=== PATIENT | female | born 1950 | race American Indian/Alaskan Native ===

== ENCOUNTER 2017-11-23 07:48 | Day surgery (SDC) | payer MEDICARE, OTHER ==
[2017-11-20 12:59] LABS: BASOPHILS % (AUTO) 0.5 % (0-1); EOSINOPHILS # (AUTO) 0.1 X10'3 (0-0.9); EOSINOPHILS % (AUTO) 2.4 % (0-6); LYMPHOCYTES # (AUTO) 1.5 X10'3 (1.1-4.8); LYMPHOCYTES % (AUTO) 30.3 % (21-51); MEAN CORPUSCULAR HEMOGLOBIN 30.5 PG (27.0-31.0); MEAN CORPUSCULAR HGB CONC 34.2 % (33.0-36.5); MEAN CORPUSCULAR VOLUME 89.4 FL (78-98); MEAN PLATELET VOLUME 8.3 FL (7.4-10.4); MONOCYTES # (AUTO) 0.5 X10'3 (0-0.9); MONOCYTES % (AUTO) 9.6 % (2-12); NEUTROPHILS # (AUTO) 2.8 X10'3 (1.8-7.7); NEUTROPHILS % (AUTO) 57.2 % (42-75); PRE OP HEMATOCRIT 41.3 % (35.0-45.0); PRE OP HEMOGLOBIN 14.1 g/dL (12.0-16.0); PRE OP PLATELET COUNT 236 X10'3 (140-440); RED BLOOD COUNT 4.62 X10'6 (4.20-5.60); RED CELL DISTRIBUTION WIDTH 13.7 % (11.5-14.5)
[2017-11-20 13:01] LABS: COLOR,URINE Yellow (Yellow); GLUCOSE, URINE Negative (Neg); KETONES,URINE Negative (Neg); LEUKOCYTE ESTERASE ,URINE Trace (Neg); NITRITES, URINE Negative (Neg); OCCULT BLOOD,URINE Negative (Neg); PROTEIN,URINE Negative (Neg); UROBILINOGEN,URINE 0.2 E.U/dL (0.2-1.0)
[2017-11-20 13:09] LABS: UA COLLECTION TYPE CLN CATCH MIDSTREAM
[2017-11-20 13:14] LABS: ALBUMIN 3.8 G/DL (3.4-5.0); ALKALINE PHOSPHATASE 96 IU/L (46-116); BLOOD UREA NITROGEN 15 MG/DL (7-18); BUN/CREATININE RATIO 17.2 (6.6-38.0); CALCIUM 9.1 MG/DL (8.5-10.1); CHLORIDE 106 MMOL/L (99-107); CREATININE 0.87 MG/DL (0.40-0.90); PRE OP ALT 36 U/L (30-65); PRE OP ANION GAP 7 (8-16); PRE OP AST 27 U/L (10-37); PRE OP BILIRUB, TOTAL 0.5 MG/DL (0.0-1.0); PRE OP GLUCOSE 121 MG/DL (70-104); PRE OP POTASSIUM 4.1 MMOL/L (3.4-5.1); PRE OP SODIUM 143 MMOL/L (135-145); TOTAL CARBON DIOXIDE 30.1 MMOL/L (24-32); TOTAL PROTEIN 7.6 G/DL (6.4-8.2); eGFR 65 ML/MIN
[2017-11-20 13:35] LABS: BACTERIA,URINE 4+ /HPF (Neg); RBC,URINE 0-2 /HPF (0-2); SQUAMOUS EPITHELIAL CELL,UR FEW /LPF (FEW)
[2017-11-20 13:38] LABS: CLARITY,URINE SLIGHTLY CLOUDY (Clear)
[~2017-11-23] VITALS: Ht 167.6 cm; Wt 100.7 kg
[2017-11-23] VITALS (16 sets, daily range): BP systolic 108–141; BP diastolic 52–87
[~2017-11-23 07:48] MED LIST: GENTAMICIN IV ONE; NORMAL SALINE IV ONE; SYN0.088T PO; TETR-47 OP; TETR15DR26 OP; clindamycin 600mg/D5W 50ml 50 ML IV ONE; famotidine 20mg tablet PO ONE; ringers solution, lacted 1,000 ML IV SCH
[2017-11-23] MEDS ORDERED: epiNEPHrine 1 mg/ml inj ONE (09:24)
[2017-11-23] MEDS ORDERED: midazolam 2 mg/2 ml injection ONE (10:01)
[2017-11-23] MEDS ORDERED: fentaNYL/PF 50MCG/1 ML 2ML syringe ONE (10:01)
[2017-11-23] MEDS ORDERED: ePHEDrine 50MG/ML INJ. ONE (10:05)
[2017-11-23] MEDS ORDERED: sevoflurane 250ml liquid IH ONE (10:05)
[2017-11-23] MEDS ORDERED: LIDOcaine 2% (20mg/ml) 5ml vial ONE (10:26)
[2017-11-23] MEDS ORDERED: propofol inj 20 ML IV ONE (10:26)
[2017-11-23] MEDS ORDERED: rocuronium 10mg/ml inj IV ONE (10:26)
[2017-11-23] MEDS ORDERED: dexamethasone sod phosphate 4mg/ml inj. ONE (10:26)
[2017-11-23] MEDS: BUPIVAcaine/PF 2.5 mg/ml (0.25%) 30ml vial ONE ×2 (10:44→10:45)
[2017-11-23] MEDS ORDERED: neostigmine methylsulfate 1 MG/ML 10ml vial ONE (10:58)
[2017-11-23] MEDS ORDERED: glycopyrrolate 0.2mg/ml inj ONE (10:58)
[2017-11-23] MEDS ORDERED: ondansetron/PF 4mg/2ml inj ONE (10:58)
[2017-11-23] MEDS ORDERED: meperidine/PF 25mg/ml syringe ONE (11:18)
[2017-11-23] MEDS ORDERED: ringers solution, lacted 1,000 ML IV SCH (11:23)
[2017-11-23] MEDS ORDERED: meperidine/PF 50mg/ml syringe IV PRN ×3 (11:25)
[2017-11-23] MEDS ORDERED: ondansetron/PF 4mg/2ml inj IV PRN (11:25)
[2017-11-23] MEDS ORDERED: proCHLORperazine 10 MG/2 ml inj IV PRN (11:25)
[2017-11-23] MEDS ORDERED: morphine 4 MG/ML inj SYRINge IV PRN ×2 (11:25)
[2017-11-23] MEDS ORDERED: HYDROcodone/acetaminophen 10/325mg tab PO ONE (12:15)
== END 2017-11-23 16:15 | disposition home or self-care (01) ==
LOC: PAS 07:48
PROVIDERS: ATTEND Obstetrics & Gynecology Obstetrics
DX: D27.0 Benign neoplasm of right ovary (principal); D27.1 Benign neoplasm of left ovary; N83.8 Other noninflammatory disorders of ovary, fallopian tube and broad ligament; N73.6 Female pelvic peritoneal adhesions (postinfective); M79.7 Fibromyalgia; G43.909 Migraine, unspecified, not intractable, without status migrainosus; E66.9 Obesity, unspecified; G47.33 Obstructive sleep apnea (adult) (pediatric); I10 Essential (primary) hypertension; M19.90 Unspecified osteoarthritis, unspecified site; Z88.2 Allergy status to sulfonamides; Z88.6 Allergy status to analgesic agent; Z88.0 Allergy status to penicillin; Z85.42 Personal history of malignant neoplasm of other parts of uterus; Z86.73 Personal history of transient ischemic attack (TIA), and cerebral infarction without residual deficits; Z85.528 Personal history of other malignant neoplasm of kidney; Z68.35 Body mass index [BMI] 35.0-35.9, adult; Z90.710 Acquired absence of both cervix and uterus; Z96.651 Presence of right artificial knee joint; Z90.49 Acquired absence of other specified parts of digestive tract; Z90.5 Acquired absence of kidney; Z79.1 Long term (current) use of non-steroidal anti-inflammatories (NSAID); Z87.891 Personal history of nicotine dependence; Z98.890 Other specified postprocedural states; Z79.899 Other long term (current) drug therapy
CPT/HCPCS: 36415; 58661; 71046; 80053; 81001; 85025; 86885; 86900; 86901; 87077; 87088; 87186; 93005; J1100; J1580; J2001; J2175; J2250; J2405; J2704; J2710; J3010; J3490; J7030; J7120; 88307; A4315; A7000; J0171

== ENCOUNTER 2019-04-12 17:18 | Emergency (ER) | payer MEDICARE, OTHER ==
[~2019-04-12] VITALS: Ht 167.6 cm; Wt 104.5 kg
[~2019-04-12 17:18] MED LIST changes: -GENTAMICIN IV ONE; -NORMAL SALINE IV ONE; -clindamycin 600mg/D5W 50ml 50 ML IV ONE; -famotidine 20mg tablet PO ONE; -ringers solution, lacted 1,000 ML IV SCH
[2019-04-12] MEDS ORDERED: iohexol 350MG/ML 100ml bottle IV ONE (17:59)
[2019-04-12 18:02] LABS: BASOPHILS # (AUTO) 0.1 X10'3 (0-0.2); BASOPHILS % (AUTO) 0.9 % (0-1); EOSINOPHILS # (AUTO) 0.2 X10'3 (0-0.9); EOSINOPHILS % (AUTO) 3.8 % (0-6); HEMATOCRIT 41.1 % (35.0-45.0); HEMOGLOBIN 13.9 g/dl (12.0-16.0); LYMPHOCYTES # (AUTO) 2.1 X10'3 (1.1-4.8); LYMPHOCYTES % (AUTO) 34.5 % (21-51); MEAN CORPUSCULAR HEMOGLOBIN 30.4 PG (27.0-31.0); MEAN CORPUSCULAR HGB CONC 33.9 g/dL (33.0-36.5); MEAN CORPUSCULAR VOLUME 89.5 FL (78-98); MEAN PLATELET VOLUME 8.2 FL (7.4-10.4); MONOCYTES # (AUTO) 0.8 X10'3 (0-0.9); MONOCYTES % (AUTO) 13.8 % (2-12); NEUTROPHILS # (AUTO) 2.8 X10'3 (1.8-7.7); PLATELET COUNT 244 X10'3 (140-440); RED BLOOD COUNT 4.59 X10'6 (4.20-5.60)
[2019-04-12 18:08] LABS: PARTIAL THROMBOPLASTIN TIME 30 SECONDS (22-32)
[2019-04-12 18:11] LABS: ALANINE AMINOTRANSFERASE 58 U/L (12-78); ALBUMIN 3.7 G/DL (3.4-5.0); ALKALINE PHOSPHATASE 100 IU/L (46-116); ANION GAP 7 (8-16); ASPARTATE AMINO TRANSFERASE 39 U/L (10-37); BILIRUBIN,TOTAL 0.4 MG/DL (0.1-1.0); BLOOD UREA NITROGEN 24 MG/DL (7-18); BUN/CREATININE RATIO 23.1 (6.6-38.0); CALCIUM 9.2 MG/DL (8.5-10.1); CHLORIDE 106 MMOL/L (99-107); CREATININE 1.04 MG/DL (0.40-0.90); GLUCOSE 110 MG/DL (70-104); POTASSIUM 4.2 MMOL/L (3.5-5.1); SODIUM 141 MMOL/L (135-145); TOTAL CARBON DIOXIDE 28.2 MMOL/L (24-32); TOTAL PROTEIN 7.3 G/DL (6.4-8.2); eGFR 53 ML/MIN
[2019-04-12 18:18] LABS: D-DIMER 0.48 MG/L FEU (0-0.50)
[2019-04-12] MEDS ORDERED: LEVO100T PO (18:20)
[2019-04-12] MEDS ORDERED: FURO-150 PO (18:21)
--- NOTE | 2019-04-12 18:46 | NUR ---
PT IS PPOLITE AND COOPERATIVE AND A&OX4. JUST RETURNED FROM CT.
--- NOTE | 2019-04-12 19:55 | NUR ---
PATIENT AMBULATED WITH STANDBY ASSIST ABOUT 200 FEET WITH PULSE OX ON, LOWEST SPO2 NOTED 92%, PT STATED "SLIGHT SOB", RR EVEN AND UNLABORED
[2019-04-12 20:09] VITALS: BP 133/62
== END 2019-04-12 20:14 | disposition home or self-care (01) ==
LOC: ER 17:19
DX: R06.00 Dyspnea, unspecified (principal); I10 Essential (primary) hypertension; C56.9 Malignant neoplasm of unspecified ovary; Z90.49 Acquired absence of other specified parts of digestive tract; Z90.710 Acquired absence of both cervix and uterus; Z98.890 Other specified postprocedural states; Z88.0 Allergy status to penicillin; Z79.82 Long term (current) use of aspirin; Z88.2 Allergy status to sulfonamides; Z79.899 Other long term (current) drug therapy
CPT/HCPCS: 36415; 71045; 71275; 80053; 84484; 85025; 85379; 85610; 85730; 93005; 99284; Q9967

== ENCOUNTER 2020-01-20 16:02 | Emergency (ER) | payer MEDICARE, OTHER ==
[~2020-01-20] VITALS: Ht 167.6 cm; Wt 105.0 kg
[~2020-01-20 16:02] MED LIST changes: +FURO-150 PO; +LEVO100T PO; -SYN0.088T PO; -TETR-47 OP; +TETR-74 OP
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
--- NOTE | 2020-01-20 18:05 | NUR ---
INCENDIARY POWDER MIXER AT BEDSIDE
--- NOTE | 2020-01-20 18:46 | NUR ---
PT AMB WITH STEADY GAIT FROM XRAY
[2020-01-20] MEDS ORDERED: DOXY100C43 PO (19:08)
[2020-01-20 19:29] VITALS: BP 142/96
== END 2020-01-20 19:30 | disposition home or self-care (01) ==
LOC: ER 16:03
DX: L03.032 Cellulitis of left toe (principal); I10 Essential (primary) hypertension; Z98.890 Other specified postprocedural states; Z90.710 Acquired absence of both cervix and uterus; Z88.0 Allergy status to penicillin; Z88.6 Allergy status to analgesic agent; Z88.2 Allergy status to sulfonamides; Z88.5 Allergy status to narcotic agent; Z79.899 Other long term (current) drug therapy
CPT/HCPCS: 73660; 93926; 93971; 99285

== ENCOUNTER 2020-02-26 08:25 | Emergency (ER) | payer MEDICARE, OTHER ==
[~2020-02-26] VITALS: Ht 167.6 cm; Wt 104.9 kg
--- NOTE | 2020-02-26 09:14 | NUR ---
pt to ct scan,will draw bld when pt is back.
[2020-02-26 09:59] LABS: BASOPHILS % (AUTO) 0.7 % (0-1); EOSINOPHILS # (AUTO) 0.1 X10'3 (0-0.9); EOSINOPHILS % (AUTO) 2.3 % (0-6); HEMATOCRIT 43.1 % (35.0-45.0); HEMOGLOBIN 14.5 g/dl (12.0-16.0); LYMPHOCYTES # (AUTO) 1.4 X10'3 (1.1-4.8); LYMPHOCYTES % (AUTO) 30.5 % (21-51); MEAN CORPUSCULAR HEMOGLOBIN 30.8 PG (27.0-31.0); MEAN CORPUSCULAR HGB CONC 33.5 g/dL (33.0-36.5); MEAN CORPUSCULAR VOLUME 91.7 FL (78-98); MEAN PLATELET VOLUME 8.4 FL (7.4-10.4); MONOCYTES # (AUTO) 0.5 X10'3 (0-0.9); MONOCYTES % (AUTO) 10.1 % (2-12); NEUTROPHILS # (AUTO) 2.5 X10'3 (1.8-7.7); NEUTROPHILS % (AUTO) 56.4 % (42-75); PLATELET COUNT 241 X10'3 (140-440); RED CELL DISTRIBUTION WIDTH 13.5 % (11.5-14.5); WHITE BLOOD COUNT 4.5 X10'3 (4.5-11.0)
[2020-02-26 10:17] LABS: ALANINE AMINOTRANSFERASE 39 U/L (12-78); ALBUMIN 3.6 G/DL (3.4-5.0); ALBUMIN/GLOBULIN RATIO 1.1 (1.1-1.5); ALKALINE PHOSPHATASE 91 IU/L (46-116); ANION GAP 7 (8-16); ASPARTATE AMINO TRANSFERASE 29 U/L (10-37); BILIRUBIN,TOTAL 0.6 MG/DL (0.1-1.0); BLOOD UREA NITROGEN 17 MG/DL (7-18); BUN/CREATININE RATIO 14.9 (6.6-38.0); CALCIUM 8.6 MG/DL (8.5-10.1); CHLORIDE 108 MMOL/L (99-107); CREATININE 1.14 MG/DL (0.40-0.90); GLUCOSE 134 MG/DL (70-104); POTASSIUM 3.9 MMOL/L (3.5-5.1); SODIUM 145 MMOL/L (135-145); TOTAL CARBON DIOXIDE 29.6 MMOL/L (24-32); eGFR 47 ML/MIN
[2020-02-26 10:22] LABS: TROPONIN I < 0.04 NG/ML (0.0-0.05)
[2020-02-26] MEDS ORDERED: MECL-159 PO (10:43)
[2020-02-26] MEDS ORDERED: meclizine 12.5mg tablet PO ONE (10:45)
[2020-02-26 11:01] VITALS: BP 137/82
== END 2020-02-26 11:03 | disposition home or self-care (01) ==
LOC: ER 08:25
DX: R42 Dizziness and giddiness (principal); I10 Essential (primary) hypertension; R11.0 Nausea; M25.551 Pain in right hip; Z85.9 Personal history of malignant neoplasm, unspecified; Z90.710 Acquired absence of both cervix and uterus; Z98.890 Other specified postprocedural states; Z60.2 Problems related to living alone; Z88.0 Allergy status to penicillin; Z88.2 Allergy status to sulfonamides; Z88.5 Allergy status to narcotic agent; Z79.899 Other long term (current) drug therapy
CPT/HCPCS: 36415; 70450; 73030; 80053; 84484; 85025; 93005; 99285; J8597